=== PATIENT | female | born 1960 | race Caucasian/White ===

== ENCOUNTER 2019-01-22 06:51 | Day surgery (SDC) | payer BC ==
[~2019-01-22 06:51] MED LIST: Lactated Ringers 1,000 ML IV SCH; Sodium Chloride 0.9% 10 ML Syringe FLUSH PRN
[2019-01-22] MEDS ORDERED: Propofol 200 MG/20 ML SDV ONE ×2 (07:49→09:00)
[2019-01-22] MEDS ORDERED: fentaNYL 100 MCG/2 ML SDV ONE (07:49)
--- NOTE | 2019-01-22 10:00 | OR ---
PREOPERATIVE DIAGNOSIS: Screening colonoscopy. POSTOPERATIVE DIAGNOSIS: Normal colonoscopic exam. PROCEDURE PROPOSED AND PROCEDURE DONE: Total flexible colonoscopy. INDICATION: This is a 58-year-old female who comes in for screening colonoscopy. Her last examination was about 10 years ago. She denies any symptomatology and she has a negative family history for any polyps or colon cancer. TECHNIQUE: The patient was brought to the endoscopy suite, placed in left lateral decubitus position. She was sedated per [employer] with propofol. The flexible video colonoscope was then passed transanally and under visualization advanced to the cecum. Her bowel prep was very marginal. She had a lot of thick greenish fluid that required irrigation and suctioning and the scope on several occasions having to clear out the scope to continue with the procedure. An adequate examination was obtained, however, and there was no evidence of any polyps or diverticulosis or colitis throughout the ascending, transverse, descending, sigmoid, and rectal colon. She had somewhat of an elongated tortuous colon, but it was more of a bowel prep that created difficulties rather than the length of the colon, and she did tolerate the procedure well, however. FINAL IMPRESSION: Essentially normal colonoscopic exam with marginal bowel prep. PLAN: I feel that she can wait 10 years before she needs repeat exam, but she should undergo a 2-day bowel prep to get more adequately cleaned out. SCM: 01/22/2019 09:25:11 MODL: 01/22/2019 09:45:27 /[id number]
== END 2019-01-22 10:25 | disposition home or self-care (01) ==
LOC: VM.SDS 06:51
PROVIDERS: ATTEND Surgery
DX: K59.00 Constipation, unspecified (principal); E78.5 Hyperlipidemia, unspecified; E11.9 Type 2 diabetes mellitus without complications; G47.33 Obstructive sleep apnea (adult) (pediatric); F33.0 Major depressive disorder, recurrent, mild; L72.0 Epidermal cyst; G25.81 Restless legs syndrome; B07.0 Plantar wart; M25.552 Pain in left hip; M25.551 Pain in right hip; G89.29 Other chronic pain; E66.9 Obesity, unspecified; Z68.30 Body mass index [BMI] 30.0-30.9, adult; Z79.899 Other long term (current) drug therapy; Z79.84 Long term (current) use of oral hypoglycemic drugs; Z79.82 Long term (current) use of aspirin; Z91.048 Other nonmedicinal substance allergy status; Z98.890 Other specified postprocedural states
CPT/HCPCS: 82962; J2704; J3010; J7120